=== PATIENT | female | born 1965 | race Native Hawaiian/Other Pacific Islander ===

== ENCOUNTER 2020-02-08 12:59 | Emergency (ER) | payer OTHER ==
[~2020-02-08] VITALS: Ht 165.1 cm; Wt 86.2 kg
[2020-02-08 13:08] VITALS: TEMP 97.7
[2020-02-08 14:05] VITALS: BP 188/85
== END 2020-02-08 14:05 | disposition home or self-care (01) ==
LOC: ED 12:59
DX: M54.5 Low back pain (principal); M62.830 Muscle spasm of back; X58.XXXA Exposure to other specified factors, initial encounter; Y92.89 Other specified places as the place of occurrence of the external cause
CPT/HCPCS: 96372; 99282; J1885